=== PATIENT | male | born 1990 | race Two or more races ===

== ENCOUNTER 2019-11-28 04:24 | Emergency (ER) | payer BC, OTHER ==
[2019-11-28 04:49] VITALS: BMI 24.5
--- NOTE | 2019-11-28 05:00 | PDOC ---
Attending Attestation - Resident Resident Name: Cindy Arce - ED Attending Attestation I have performed the following: I have examined & evaluated the patient, The case was reviewed & discussed with the resident, I agree w/resident's findings & plan - HPI HPI: 11/28/19 04:59 Pt comes with abd pain after dinner. He has cyclical vomiting from using pot. He takes hot showers with relief. States that he vomited 20x today - Physicial Exam PE: 11/28/19 06:42 Agree with resident exam. Normal exam - Medical Decision Making 11/28/19 05:22 Pt will be hydrated in the ER x 2 L Pt will be treated with IM dose of haldol Labs will be drawn 11/28/19 06:43 Labs are normal Mg is low; he will be repleted Pt ramu complaining of abd pain and he will be treated with ofirmev and then discharged.
[2019-11-28] MEDS ORDERED: ONDANSETRON 4 MG/2 ML VIAL IVPUSH ONE (05:06)
[2019-11-28] MEDS ORDERED: ACETAMINOPHEN 1000 MG/100 ML VIAL (NON FORMULARY) IVPB ONE ×2 (05:06→06:40)
[2019-11-28] MEDS ORDERED: ONDANSETRON 4 MG/2 ML VIAL ONE (05:10)
[2019-11-28] MEDS ORDERED: SODIUM CHLORIDE 1,000 ML IV STA (05:16)
[2019-11-28] MEDS ORDERED: FAMOTIDINE 20 MG/50 ML IVPB 20 MG/50 ML MG IVPB ONE ×2 (05:17→05:20)
[2019-11-28] MEDS ORDERED: HALOPERIDOL LACTATE 5 MG/ML ONE (05:30)
[2019-11-28] MEDS ORDERED: HALOPERIDOL LACTATE 5 MG/ML IM ONE (05:30)
--- NOTE | 2019-11-28 05:35 | PDOC ---
History of Present Illness - General Chief Complaint: Nausea/Vomiting Stated Complaint: VOMITING Time Seen by Provider: 11/28/19 04:50 - History of Present Illness Initial Comments: 11/28/19 05:35 HPI: 29 y/o M with daily MJ use presenting with epigastric abdominal pain, nausea, emesis. Symtpoms started around 6pm last night around dinner time. He felt 7/10 epigastric abd pain followed by significant nausea and emesis. He has not been able to tolerate PO since then with 15-20 episodes of emesis with occasional gastric contents. Pain is nonradiating. He also reports chills and diaphoresis. He reports similar symtpoms several months ago that resolved on its own. He reports hot showers improve symptoms. He denies fever, chest pain, SOB, dyrusira , diarrhea, constipation, LH, RICHARDSON. PMHx: as noted above ROS: as noted SHx: Denies tobacco use; no alcohol use; daily MJ rec drugs Allergies: NKDA ROS: GENERAL/CONSTITUTIONAL: +chills. No weakness. HEAD, EYES, EARS, NOSE AND THROAT: No change in vision. No ear pain or discharge. No sore throat. CARDIOVASCULAR: No chest pain or shortness of breath RESPIRATORY: No cough, wheezing, or hemoptysis. GASTROINTESTINAL: +nausea, vomiting; no diarrhea or constipation. GENITOURINARY: No dysuria, frequency, or change in urination. MUSCULOSKELETAL: No joint or muscle swelling or pain. No neck or back pain. SKIN: No rash NEUROLOGIC: No headache, vertigo, loss of consciousness, or change in strength/ sensation. ENDOCRINE: No increased thirst. No abnormal weight change HEMATOLOGIC/LYMPHATIC: No anemia, easy bleeding, or history of blood clots. ALLERGIC/IMMUNOLOGIC: No hives or skin allergy. PE: GENERAL: Awake, alert, and fully oriented, moderate distress due to abd pain HEAD: No signs of trauma, normocephalic, atraumatic EYES: EOMI, sclera anicteric, conjunctiva clear ENT: Auricles normal inspection, hearing grossly normal, nares patent, oropharynx clear without exudates. Moist mucosa NECK: Normal ROM, no lymphadenopathy LUNGS: No increased work of breathing, symmetrical chest rise, clear to auscultation bilaterally, no wheezes, crackles or rhonchi HEART: Regular rate, regular rhythm, normal S1 and S2, no murmur, peripheral pulses 2+ and equal bilaterally. ABDOMEN: Soft, nondistended, nontender, normoactive bowel sounds. No guarding, no rebound. No masses. No CVAT MUSCULOSKELETAL: Normal inspection, FROM NEUROLOGICAL: Cranial nerves II through XII grossly intact. Normal speech, normal gait, no focal sensorimotor deficits SKIN: Warm, Dry, normal turgor, no rashes or lesions noted Past History - Past Medical History Allergies/Adverse Reactions: Allergies Allergy/AdvReac Type Severity Reaction Status Date / Time No Known Allergies Allergy Verified 11/28/19 04:49 Home Medications: Ambulatory Orders NK [No Known Home Medication] 11/28/19 COPD: No - Psycho Social/Smoking Cessation Hx Smoking History: Never smoked Hx Alcohol Use: Yes Drug/Substance Use Hx: Yes *Physical Exam - Vital Signs Last Vital Signs Temp Pulse Resp BP Pulse Ox 99.2 F 75 18 128/75 100 11/28/19 04:35 11/28/19 04:35 11/28/19 04:35 11/28/19 04:35 11/28/19 04:35 ED Treatment Course - LABORATORY CBC & Chemistry Diagram: 11/28/19 05:14 11/28/19 05:14 - Medications Given in the ED: ED Medications Discontinued Medications Generic Name Dose Route Start Last Admin Trade Name Manjit PRN Reason Stop Dose Admin Ondansetron HCl 4 mg 11/28/19 05:06 11/28/19 05:15 Zofran Injection IVPUSH 11/28/19 05:07 4 mg ONCE ONE Administration Medical Decision Making - Medical Decision Making 11/28/19 06:48 29 y/o M with daily MJ use presenting with epigastric abdominal pain, nausea, emesis. VSS, AF. PE unremarkable. DDx includes gastritis, cannabanoid hyperemesis syndrome, GB pathology -cbc, cmp, mg, phos, lipase -ivf, zofran, haldol 11/28/19 06:49 nausea improved labs wnl reports pain, will give ofirmev; replete mg discussed with patient likely hyperemesis will PO challenge following ofirmev and DC home patient understands and agrees Discharge - Discharge Information Problems reviewed: Yes Clinical Impression/Diagnosis: Nausea & vomiting Qualifiers: Vomiting type: unspecified Vomiting Intractability: unspecified Qualified Code( s): R11.2 - Nausea with vomiting, unspecified Condition: Fair Disposition: HOME - Follow up/Referral - Patient Discharge Instructions Patient Printed Discharge Instructions: DI for Nausea -- Adult, DI for Vomiting -- Adult Additional Instructions: Additional Instructions: Please return to the emergency department with any new or worsening symptoms or concerns including fever, fainting, worsening vomiting. Please follow up with your primary care physician within 72 hours. Please abstain from smoking marijuana to prevent worsening symptoms. - Post Discharge Activity
[2019-11-28 06:14] LABS: BASO % 0.8 % (0-2.0); HEMATOCRIT 46.3 % (35.4-49); HEMOGLOBIN 15.9 GM/dL (11.7-16.9); LYMPH % 5.5 % (8-40); MCH 29.7 pg (25.7-33.7); MCHC 34.3 g/dl (32.0-35.9); MEAN CELL VOLUME 86.6 fl (80-96); MEAN PLT VOLUME 9.7 fl (7.5-11.1); MONO % 3.8 % (3.8-10.2); NEUT % 89.9 % (42.8-82.8); PLATELET COUNT 178 K/MM3 (134-434); RBC 5.35 M/mm3 (4.00-5.60); RDW 13.5 % (11.9-15.9); WHITE BLOOD COUNT 10.8 K/mm3 (4.0-10.0)
[2019-11-28 06:21] LABS: MAGNESIUM 1.6 mg/dL (1.8-2.4)
[2019-11-28 06:22] LABS: ALBUMIN 4.8 g/dl (3.4-5.0); BILIRUBIN,TOTAL 0.7 mg/dL (0.2-1); BLOOD UREA NITROGEN 15.4 mg/dL (7-18); CALCIUM 9.7 mg/dL (8.5-10.1); CREATININE 1.2 mg/dL (0.55-1.3); POTASSIUM 4.2 mmol/L (3.5-5.1); TOT PROT 8.2 g/dl (6.4-8.2)
[2019-11-28] MEDS ORDERED: MAGNESIUM SULF 50% (8.12 MEQ/2 ML-1 GM VIAL) IVPB ONE (06:40)
[2019-11-28] MEDS ORDERED: ACETAMINOPHEN INJECTION 100 ML IVPB ONE (06:41)
[2019-11-28] MEDS ORDERED: MAGNESIUM 1GM/D5W - 2 GM/200 ML IVPB IVPB ONE (06:41)
[2019-11-28 07:15] VITALS: BP 105/57; PULSE 82; TEMP 99.6
[2019-11-28 11:43] LABS: ANISOCYTOSIS 1+; MACROCYTOSIS 0; OVALOCYTE 1+; PLATELET ESTIMATE NORMAL; TARGET CELLS 1+; TEAR DROP CELLS 1+
== END 2019-11-28 07:46 | disposition home or self-care (01) ==
LOC: JER 04:24
PROC: 3E023NZ Introduction of Analgesics, Hypnotics, Sedatives into Muscle, Percutaneous Approach (ICD-10-PCS; principal; 2019-11-28)
PROC: 3E033GC Introduction of Other Therapeutic Substance into Peripheral Vein, Percutaneous Approach (ICD-10-PCS; 2019-11-28)
PROC: 3E033GC Introduction of Other Therapeutic Substance into Peripheral Vein, Percutaneous Approach (ICD-10-PCS; 2019-11-28)
PROC: 3E033GC Introduction of Other Therapeutic Substance into Peripheral Vein, Percutaneous Approach (ICD-10-PCS; 2019-11-28)
PROC: 3E033NZ Introduction of Analgesics, Hypnotics, Sedatives into Peripheral Vein, Percutaneous Approach (ICD-10-PCS; 2019-11-28)
DX: R11.15 Cyclical vomiting syndrome unrelated to migraine (principal); F12.188 Cannabis abuse with other cannabis-induced disorder
CPT/HCPCS: 36415; 80053; 83690; 83735; 84100; 85025; 99283-25; J0131; J7030